=== PATIENT | male | born 1950 | race Caucasian/White ===

== ENCOUNTER 2022-08-28 00:40 | Emergency (ER) | payer OTHER ==
[~2022-08-28] VITALS: Ht 165.1 cm; Wt 68.0 kg
--- NOTE | 2022-08-28 00:40 | NUR ---
0039- PT BIBA CPR IN PROGRESS. TAKEN TO ER BED 10. DR. VALLE AND RT AT BEDSIDE
[2022-08-28] MEDS ORDERED: EPINEPHrine PFS 0.1 MG/ML SYR IVP ONE (00:45)
[2022-08-28] MEDS ORDERED: CODE BLUE PARTICIPANT 1 EA MISC MC ONE (00:45)
[2022-08-28] MEDS ORDERED: SODIUM BICARBONATE 8.4% PFS 50 MEQ/50 ML SYR IVP ONE (00:45)
[2022-08-28 00:51] VITALS: BP 0/0
--- NOTE | 2022-08-28 00:52 | NUR ---
PT PRONOUNCED BY DR. VALLE
--- NOTE | 2022-08-28 00:56 | NUR ---
CONTACTED GUITAR REPAIRER OFFICE. SPOKE WITH CHRISTOPHER. WILL CONTACT GUITAR REPAIRER TO CONTACT US.
--- NOTE | 2022-08-28 01:02 | NUR ---
[facility] CALLED SPOKE WITH MYNOR WILL CALL BACK AFTER BREAKER LAYER DECIDES IF BREAKER LAYER HOLD OR NOT. REFERRAL # [id number]
--- NOTE | 2022-08-28 01:14 | NUR ---
SPOKE WITH [facility]/MEDICAL OFFICER PSYCHIATRY ROAXNNE AT THIS TIME. INFORMATION AVIALABLE GIVEN TO OFFICER ROXANNE. HE WILL CALL BACK AFTER ATTEMPT OF REACHING THE FAMILY
--- NOTE | 2022-08-28 01:20 | NUR ---
SPOKE WITH IVESTIGATOR/MACHINE SHOP REPAIR TECHNICIAN AND PT WILL REMAIN ON A CORONERS HOLD UNTIL FURTHER NOTICE. IF FAMILY ARRIVES AND ABLE TO GET NEXT OF KIN AND PHONE NUMBER, ALONG WITH PRIMARY DOCTOR PLEASE CALL MACHINE SHOP REPAIR TECHNICIAN BACK.
--- NOTE | 2022-08-28 05:00 | NUR ---
SPOKE WITH [facility]. UPDATED ON CORNER HOLD. THEY WILL FOLLOW BACK UP.
--- NOTE | 2022-08-28 05:42 | NUR ---
DAUGHTER MARQUISE CALLED FROM [place]. [phone]. EXPLAINED TO DAUGHTER WITH DR. VALLE THAT PT HAS . OBTAINED INFORMATION NEEDED FOR INSPECTOR MULTIFOCAL LENS. CONTACTED CORONERS OFFICE TO CALL BACK WITH WAYNE.
--- NOTE | 2022-08-28 05:48 | NUR ---
NEXT OF KIN ESTABLISHED. . LARISA NAIR AUGUSTA [phone]. PER DAUGHTER, SON ALSO PRESENT WITH MOTHER AT TIME OF 911 CALL
--- NOTE | 2022-08-28 07:20 | NUR ---
SPOKE TO FAMILY IN TRIAGE ROOM WITH HOT DIP TINNING SUPERVISOR MEGAN USING A/C TECHNICIAN NAME JEAN #[id number] FOR IRISH. SON AND UPDATED THAT COURT ABSTRACTOR HAS NOT RELEASED BODY, UNABLE TO VISIT AT THIS TIME. ALSO, FAMILY MUST CHOOSE MORTURARY FOR FAMILY MEMBER, PROVIDED LIST FROM HOT DIP TINNING SUPERVISOR MEGAN. ALL QUESTIONS ANSWERED. WILL FOLLOW UP WITH COURT ABSTRACTOR IN ABOUT 30 MINS.
--- NOTE | 2022-08-28 07:58 | NUR ---
SPOKE TO PAZ LEWIS FROM PRESCHOOL EDUCATION DIRECTOR'S OFFICE, BODY IS RELEASED AFTER GIVEN NEXT OF KIN PHONE NUMBER AN PCP INFORMATION. CASE #[id number]. WILL NOTIFY FAMILY AND HOUSE SUP BY COLLAR PADDER BLINDSTITCH MEGAN.
--- NOTE | 2022-08-28 09:30 | NUR ---
FAMILY PICKED JADIEL JIMENEZ AT THIS TIME
--- NOTE | 2022-08-28 09:37 | NUR ---
SPOKE WITH ANTHONY FROM [facility], PT STATES ETA FOR SPRINKLER HELPER IS [phone]
--- NOTE | 2022-08-28 10:45 | NUR ---
JADIEL [facility] HANSA HERE TO TRANSPORT PATIENT TO [facility]. ALL APPROPRIATE PAPERS SIGNED, CLARIFIED BY LIFE SCIENCE TEACHER MEGAN. CLOSED AND COMPLETE CHART GIVEN TO [facility] PROFESSIONAL. END OF CARE.
== END 2022-08-28 00:52 ==
LOC: MED 00:40
DX: I46.9 Cardiac arrest, cause unspecified (principal); E11.9 Type 2 diabetes mellitus without complications; I10 Essential (primary) hypertension; Z86.73 Personal history of transient ischemic attack (TIA), and cerebral infarction without residual deficits
CPT/HCPCS: 99285; J0171; 92950